=== PATIENT | female | born 1975 | race Caucasian/White ===

== ENCOUNTER 2017-03-30 13:13 | Observation (INO) | payer BC ==
[~2017-03-30] VITALS: Ht 177.8 cm; Wt 100.2 kg
[~2017-03-30 13:13] MED LIST: ADVIN25050 INH; ALBU1AER9 INH; CETIRIZINE PO; ETHINYL ESTRADIOL PO; FLNIN NAE; LEVONORGESTREL PO; OXYC-57 PO
[2017-03-30] MEDS ORDERED: ONDANSETRON INJ 2 MG/ML 2 ML VIAL IV STA (14:17)
[2017-03-30] MEDS ORDERED: SODIUM CHLORIDE 0.9% 1000ML 1,000 ML IV STA (14:17)
[2017-03-30] MEDS ORDERED: ADVIN25/60 INH (14:22)
[2017-03-30] MEDS ORDERED: ASTN (14:22)
[2017-03-30] MEDS ORDERED: CETI10TA84 PO (14:22)
[2017-03-30] MEDS ORDERED: FLUT50SP45 (14:22)
[2017-03-30] MEDS ORDERED: VNTHFA/IN INH (14:22)
[2017-03-30] MEDS ORDERED: MoRPHine SULFATE 4 MG/ML 1 ML CARP\\VIAL IV STA (14:28)
[2017-03-30 14:30] LABS: URINE APPEARANCE CLOUDY (CLEAR); URINE BILIRUBIN NEG (NEG); URINE COLOR DK YELLOW; URINE EPITHELIAL CELL AUTO >30 /lpf (0-5); URINE NITRITE NEG (NEG); URINE PH 5.5 (4.5-7.5); URINE SPECIFIC GRAVITY 1.024 (1.000-1.030); UROBILINOGEN NEG (NEG); ZZUR CULT IF INDIC CLEAN CATCH YES
[2017-03-30] MEDS ORDERED: OPTIRAY 320 IV PRN (14:30)
[2017-03-30] MEDS ORDERED: MoRPHine SULFATE 4 MG/ML 1 ML CARP\\VIAL IV PRN (14:30)
[2017-03-30 14:31] LABS: MANUAL MICROSCOPIC REQUIRED? NO; REVIEW REQ? YES
[2017-03-30 14:34] LABS: BASO % 0.2 %; BASO ABS # 0.03 K/uL (0-0.2); COMPLETE YES; EOS % 1.2 %; HEMATOCRIT 40.9 % (37-47); IG% 0.3 %; LYMPH % 17.7 %; LYMPH ABS # 2.29 K/uL (1.2-3.4); MEAN CELL VOLUME 81.6 fL (80-100); MEAN CORPUSCULAR HEMOGLOBIN 27.9 pg (25-34); MEAN CORPUSCULAR HGB CONC 34.2 g/dl (32-36); MEAN PLATELET VOLUME 10.1 fL (7.4-10.4); MONO % 11.7 %; NEUT % 68.9 %; PLATELET COUNT 307 K/uL (130-400); RED BLOOD COUNT 5.01 M/uL (4.2-5.4); WHITE BLOOD COUNT 12.94 K/uL (4.8-10.8)
[2017-03-30 14:48] LABS: URINE MUCUS PRESENT (NONE PRSENT)
[2017-03-30 14:55] LABS: ALT/SGPT 17 U/L (12-78); BLOOD UREA NITROGEN 7 mg/dl (7-18); BUN/CREATININE RATIO 7.2 (10-20); CALCIUM 9.6 mg/dl (8.5-10.1); CARBON DIOXIDE 21 mmol/L (21-32); CHLORIDE 110 mmol/L (98-107); CREATININE 0.92 mg/dl (0.60-1.20); GLUCOSE 76 mg/dl (70-99); POTASSIUM 3.5 mmol/L (3.5-5.1); SODIUM 139 mmol/L (136-145)
[2017-03-30 15:00] LABS: ALKALINE PHOSPHATASE 87 U/L (45-117); AST/SGOT 11 U/L (15-37)
--- NOTE | 2017-03-30 15:34 | DIAGNOSTIC IMAGING REPORT ---
CHEST 2 VIEWS ROUTINE HISTORY: Right lower chest pain. RUQ pain, worse with deep breathing COMPARISON: None. FINDINGS: The lungs are clear. Cardiac silhouette is normal in size. No pleural effusions. No pneumothorax. IMPRESSION: No acute process. Electronically signed by: Zion Schmid M.D. 03/30/2017 3:33 PM Dictated Date/Time: 03/30/2017 3:32 PM
--- NOTE | 2017-03-30 15:47 | DIAGNOSTIC IMAGING REPORT ---
APPENDIX ULTRASOUND HISTORY: Right lower quadrant abdominal pain. COMPARISON: None. FINDINGS: Transabdominal scanning of the right lower quadrant was performed. The appendix was not identified. There are no fluid collections or masses within the right lower quadrant. IMPRESSION: The appendix was not identified. Electronically signed by: Zion Schmid M.D. 03/30/2017 3:45 PM Dictated Date/Time: 03/30/2017 3:45 PM
--- NOTE | 2017-03-30 15:49 | DIAGNOSTIC IMAGING REPORT ---
ABDOMINAL ULTRASOUND, RIGHT UPPER QUADRANT HISTORY: RUQ/RLQ ABDOMINAL PAIN. COMPARISON: None. FINDINGS: Pancreas: The pancreatic tail is obscured by overlying bowel gas. The remaining portions of the pancreas are within normal limits. Liver: Coarse echotexture without definite mass. There is a 3.3 x 4.2 x 1.7 cm geographic hyperechoic area near the kayla hepatis which favors focal fat. Gallbladder: No gallbladder wall thickening. No gallstones. There are total of 2 small polyps with the largest measuring 3 mm. CBD: 4 mm. Right kidney: No hydronephrosis. IMPRESSION: 1. A few small gallbladder polyps. No gallstones. No gallbladder wall thickening. 2. Normal caliber common bile duct. 3. A 4.2 x 3.2 x 1.7 cm geographic hyperechoic area within the liver near the kayla hepatis. This likely represents focal fat. Electronically signed by: Zion Schmid M.D. 03/30/2017 3:48 PM Dictated Date/Time: 03/30/2017 3:45 PM
--- NOTE | 2017-03-30 17:27 | DIAGNOSTIC IMAGING REPORT ---
CT ABD/PELVIS IV AND ORAL CONT CLINICAL HISTORY: Right lower quadrant abdominal pain COMPARISON STUDY: None. TECHNIQUE: Following the IV administration of 93 mL of Optiray-320, CT scan of the abdomen and pelvis was performed from the lung bases to the proximal femurs. Images are reviewed in the axial, sagittal, and coronal planes. IV contrast was administered without complication. A dose lowering technique was utilized adhering to the principles of ALARA. CT DOSE: 768.53 mGy.cm FINDINGS: Lower chest: There are small bilateral pleural effusions. Liver: There is a small pericardial effusion. Gallbladder: Unremarkable. Spleen: The spleen is mildly enlarged measuring 12.8 cm Pancreas: Unremarkable. Adrenal glands: Unremarkable. 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 Bowel: There are no transition zone to indicate bowel obstruction. There is no evidence of acute diverticulitis. There is mild appendiceal thickening which measures up to 9 mm. There is mild infiltration of the periappendiceal fat. The findings are consistent with acute appendicitis. Peritoneum: There is no intraperitoneal free air or abdominal ascites. There is a small fat-containing umbilical hernia Vasculature: The abdominal aorta is normal in course and caliber. Adenopathy: None. Pelvic viscera: The bladder, and pelvic viscera are unremarkable. Skeletal structures: There are postsurgical changes present within the lumbar spine. IMPRESSION: 1. Mild appendiceal thickening with minimal periappendiceal inflammatory stranding. In the setting of right lower quadrant abdominal pain, the findings are suspicious for early acute appendicitis. Surgical consultation is recommended. 2. Small bilateral pleural effusions 3. Small pericardial effusion 4. 7 mm left renal angiomyolipoma 5. Mild splenomegaly Electronically signed by: Poncho Holly M.D. 03/30/2017 5:26 PM Dictated Date/Time: 03/30/2017 5:21 PM
[2017-03-30] MEDS ORDERED: ROCURONIUM BROMIDE 10 MG/ML 5 ML VIAL IV ONE (18:55)
[2017-03-30] MEDS ORDERED: PROPOFOL IV EMULSION 10 MG/ML 20 ML VIAL IV ONE (18:55)
[2017-03-30] MEDS ORDERED: LIDOCAINE HCL 2% 2 ML VIAL (20MG/ML) ONE (18:55)
[2017-03-30] MEDS ORDERED: ONDANSETRON INJ 2 MG/ML 2 ML VIAL ONE ×2 (18:55→19:31)
[2017-03-30] MEDS ORDERED: GLYCOPYRROLATE INJ 0.2 MG/ML VIAL ONE (18:55)
[2017-03-30] MEDS ORDERED: NEOSTIGMINE METHYLSULFATE 5 MG/5 ML SYR ONE (18:55)
[2017-03-30] MEDS ORDERED: CEFOXITIN 2000MG/60 ML D5W IV STA (18:56)
--- NOTE | 2017-03-30 18:56 | Surgery Consultation ---
Consultation Date of Consultation: Mar 30, 2017. Attending Physician: History of Present Illness pt is a 41 year old female who presents to ER for one day history RLQ pain, the pain is located at RLQ, pt has no PMH for abdominal pain, pt denies fever, no nausea, no vomiting, no dysuria. no diarrhea. Social History Smoking Status: Never Smoker Smokeless Tobacco Use: No Alcohol Use: occasionally Drug Use: none Marital Status: Allergies Coded Allergies: Animal Dander (Verified Allergy, Unknown, UNKNOWN, 03/30/17) Dust (Verified Allergy, Unknown, UNKNOWN, 03/30/17) Home Medications Scheduled Albuterol Hfa (Ventolin Hfa), 2-4 PUFFS INH Q6H Azelastine Hcl (Astelin Nasal Conrad), 1-2 SPRAYS NA DAILY Cetirizine (Zyrtec), 10 MG PO DAILY Fluticasone Prop/Salmeterol (Advair Diskus 250/50 60 Dose), 1 PUFF INH BID Fluticasone Propionate (Nasal) (Allergy Nasal Conrad 24 Ho), 2 SPRAYS NA DAILY Current Inpatient Medications Current Inpatient Medications Medications (Trade) Dose Ordered Sig/Isaac Route Start Time Stop Time Status Last Admin Dose Admin Ioversol (Optiray 320) 125 ml UD PRN IV 03/30/17 14:30 04/03/17 14:29 Morphine Sulfate (MoRPHine SULFATE INJ) 4 mg Q1H PRN IV 03/30/17 14:30 04/13/17 14:29 03/30/17 18:06 4 MG Review of Systems Constitutional: No fever, No chills, No sweats, No weight loss, No weakness, No fatigue, No problem reported Eyes: No worsening of vision, No eye pain, No redness, No discharge, No diplopia, No problem reported ENT: No hearing loss, No unusual epistaxis, No nasal symptoms, No sore throat, No tinnitus, No dental problems, No trouble swallowing, No problem reported Respiratory: No cough, No sputum, No wheezing, No shortness of breath, No dyspnea on exertion, No dyspnea at rest, No hemoptysis, No problem reported Cardiovascular: No chest pain, No orthopnea, No PND, No edema, No claudication , No palpitations, No problem reported Abdomen: + pain Musculoskeletal: No joint pain, No muscle pain, No swelling, No calf pain, No problem reported Genitourinary - Female: No dysuria, No urinary frequency, No urinary urgency, No urinary incontinence, No urinary retention, No hematuria, No dysmenorrhea, No menorrhagia, No metrorrhagia, No rash, No vaginal bleeding, No vaginal discharge, No vaginal itching, No vulvodynia, No , No problem reported Neurologic: No memory loss, No paralysis, No weakness, No numbness/tingling, No vertigo, No balance problems, No problem reported Psychiatric: No depression symptoms, No anhedonism, No anxiety, No insomnia, No substance abuse, No problem reported Endocrine: No fatigue, No excessive thirst, No excessive urination, No problem reported Hematologic / Lymphatic: No abnormal bleeding/bruising, No clotting problems, No swollen lymph nodes, No night sweats, No problem reported Physical Exam Date Time Temp Pulse Resp B/P (MAP) Pulse Ox O2 Delivery O2 Flow Rate FiO2 03/30/17 18:06 81 17 166/95 99 Room Air 03/30/17 17:00 76 18 140/76 99 Room Air 03/30/17 15:47 79 17 137/97 98 Room Air 03/30/17 14:41 81 20 155/73 99 Room Air 03/30/17 13:19 36.6 97 18 186/104 99 Room Air General Appearance: WD/WN, no apparent distress Head: normocephalic Eyes: normal inspection ENT: normal ENT inspection Neck: supple, no JVD Respiratory/Chest: chest non-tender, lungs clear Cardiovascular: regular rate, rhythm, no edema, no JVD, no murmur Abdomen/GI: soft, no organomegaly, no pulsatile mass, + tenderness (at RLQ, no rebound pain, ), + guarding Extremities/Musculoskelatal: normal inspection, no calf tenderness, normal capillary refill Neurologic/Psych: no motor/sensory deficits, alert, normal mood/affect Skin: normal color, warm/dry Laboratory Results Last 24 Hours Test 03/30/17 14:02 03/30/17 14:07 Urine Color DK YELLOW Urine Appearance CLOUDY Urine pH 5.5 Urine Specific [place] 1.024 Urine Protein NEG Urine Glucose (UA) NEG Urine Ketones TRACE Urine Occult Blood NEG Urine Nitrite NEG Urine Bilirubin NEG Urine Urobilinogen NEG Urine Leukocyte Esterase SMALL Urine WBC (Auto) 5-10 /hpf Urine RBC (Auto) 0-4 /hpf Urine Hyaline Casts (Auto) 1-5 /lpf Urine Epithelial Cells (Auto) >30 /lpf Urine Bacteria (Auto) 1+ Urine Pathogenic Casts /lpf Urine Mucus PRESENT Urine Test NEG White Blood Count 12.94 K/uL Red Blood Count 5.01 M/uL Hemoglobin 14.0 g/dL Hematocrit 40.9 % Mean Corpuscular Volume 81.6 fL Mean Corpuscular Hemoglobin 27.9 pg Mean Corpuscular Hemoglobin Concent 34.2 g/dl Platelet Count 307 K/uL Mean Platelet Volume 10.1 fL Neutrophils (%) (Auto) 68.9 % Lymphocytes (%) (Auto) 17.7 % Monocytes (%) (Auto) 11.7 % Eosinophils (%) (Auto) 1.2 % Basophils (%) (Auto) 0.2 % Neutrophils # (Auto) 8.91 K/uL Lymphocytes # (Auto) 2.29 K/uL Monocytes # (Auto) 1.51 K/uL Eosinophils # (Auto) 0.16 K/uL Basophils # (Auto) 0.03 K/uL RDW Standard Deviation 44.5 fL RDW Coefficient of Variation 15.0 % Immature Granulocyte % (Auto) 0.3 % Immature Granulocyte # (Auto) 0.04 K/uL Sodium Level 139 mmol/L Potassium Level 3.5 mmol/L Chloride Level 110 mmol/L Carbon Dioxide Level 21 mmol/L Anion Gap 8.0 mmol/L Blood Urea Nitrogen 7 mg/dl Creatinine 0.92 mg/dl Est Creatinine Clear Calc Drug Dose 103.1 ml/min Estimated GFR () 89.6 Estimated GFR (Non- 77.3 BUN/Creatinine Ratio 7.2 Random Glucose 76 mg/dl Calcium Level 9.6 mg/dl Total Bilirubin 0.5 mg/dl Direct Bilirubin 0.1 mg/dl Aspartate Amino Transf (AST/SGOT) 11 U/L Alanine Aminotransferase (ALT/SGPT) 17 U/L Alkaline Phosphatase 87 U/L Troponin I < 0.015 ng/ml Total Protein 7.9 gm/dl Albumin 3.7 gm/dl Lipase 186 U/L Assessment & Plan CT scan-IMPRESSION: 1. Mild appendiceal thickening with minimal periappendiceal inflammatory stranding. In the setting of right lower quadrant abdominal pain, the findings are suspicious for early acute appendicitis. Surgical consultation is recommended. 2. Small bilateral pleural effusions 3. Small pericardial effusion 4. 7 mm left renal angiomyolipoma 5. Mild splenomegaly U/S-IMPRESSION: 1. A few small gallbladder polyps. No gallstones. No gallbladder wall thickening. 2. Normal caliber common bile duct. 3. A 4.2 x 3.2 x 1.7 cm geographic hyperechoic area within the liver near the kayla hepatis. This likely represents focal fat. Assement: pt is a 41 year old female who presents to ER for one day history abdominal pain, pt had CT scan- Dx acute appendicitis, IMP: acute appendicitis Plan, I recommend to do laparoscopic appendectomy, possible open , D/W benefits, risks and alternatives of the procedure, otñito risks- infection, bleeding, abscess, injury bowel, pt and her understood, sthey agree with the plan, pt signed consent, I answered all questions, I reviewed all albs ,
[2017-03-30] MEDS ORDERED: LIDOCAINE HCL 1% 20 ML VIAL ONE (19:05)
[2017-03-30] MEDS ORDERED: BACITRACIN OINT 15 GM TUBE ONE (19:05)
[2017-03-30] MEDS ORDERED: BUPIVACAINE 0.5 % 5 MG/1 ML MPF 30ML VIAL ONE (19:05)
[2017-03-30] MEDS ORDERED: CEFOXITIN IV 2,000 MG in DEXTROSE 5% 50ML 50 ML IV SCH (19:15)
[2017-03-30] MEDS ORDERED: ATROPINE SULFATE 0.1 MG/ML 5ML SYR IV PRN (19:30)
[2017-03-30] MEDS ORDERED: NALOXONE HCL 0.4 MG/1 ML VIAL/CARP IV PRN (19:30)
[2017-03-30] MEDS ORDERED: FLUMAZENIL 0.1 MG/1 ML 10 ML VIAL IV PRN (19:30)
[2017-03-30] MEDS ORDERED: ONDANSETRON INJ 2 MG/ML 2 ML VIAL IV PRN ×2 (19:30→21:00)
[2017-03-30] MEDS ORDERED: PHENYLEPHRINE 100MCG/ML 5ML SYR IV PRN (19:30)
[2017-03-30] MEDS ORDERED: HYDROmorphone INJ 2 MG/ML SYR/VIAL IV PRN (19:30)
[2017-03-30] MEDS ORDERED: LABETALOL HCL IV 5 MG/ML 20ML IV PRN (19:30)
[2017-03-30] MEDS ORDERED: MEPERIDINE HCL 25 MG/ML CARP IV PRN (19:30)
[2017-03-30] MEDS ORDERED: EpHEDrine SULFATE INJ 50 MG/ML AMP IV PRN (19:30)
[2017-03-30] MEDS ORDERED: FENTANYL CITRATE INJ 50 MCG/1 ML 2 ML VIAL IV PRN (19:30)
[2017-03-30] MEDS ORDERED: DEXAMETHASONE SOD INJ 4 MG/ML VIAL ONE (19:31)
[2017-03-30] MEDS ORDERED: MIDAZOLAM HCL 1 MG/ML 2ML VIAL ONE (19:32)
[2017-03-30] MEDS ORDERED: SUCCINYLCHOLINE CHLORIDE 20 MG/ML 10 ML VIAL IV ONE (19:32)
[2017-03-30] MEDS ORDERED: FENTANYL CITRATE INJ 50 MCG/1 ML 2 ML VIAL ONE ×3 (19:33→21:05)
--- NOTE | 2017-03-30 19:44 | History & Physical Bridge Note ---
H&P Re-Evaluation Bridge Note: I have examined the patient, reviewed the History & Physical and in the interval since the performance of the History & Physical I have noted the following changes of clinical significance: No changes noted
[2017-03-30] MEDS ORDERED: ESMOLOL HCL 10 MG/ML 10 ML VIAL ONE (20:22)
--- NOTE | 2017-03-30 20:52 | [facility] Post Operative Brief Note ---
Immediate Operative Summary Operative Date Mar 30, 2017. Pre-Operative Diagnosis Acute appendicitis Post-Operative Diagnosis Acute appendicitis Procedure(s) Performed Laparoscopic Appendectomy Surgeon Dr. Kebede Passenger Vessel Chef Surgeon(s) surgical training specialist Estimated Blood Loss 10 ml Findings acute appendicitis Fluids (cc crystalloids) 800ml Specimens Permanent specimen A. Appendix Drains none Anesthesia general Complication(s) None Disposition Recovery Room / PACU
[2017-03-30] MEDS ORDERED: ACETAMINOPHEN 325 MG TAB PO PRN (21:00)
[2017-03-30] MEDS ORDERED: HYDROmorphone INJ 1 MG/ML SYR IV PRN (21:00)
--- NOTE | 2017-03-30 21:28 | Anesthesiology Progress Note ---
Anesthesia Post Op Note Date & Time Mar 30, 2017 at 21:28 Vital Signs Pain Intensity: 2 Vital Signs Past 12 Hours Date Time Temp Pulse Resp B/P (MAP) Pulse Ox O2 Delivery O2 Flow Rate FiO2 03/30/17 21:20 69 15 146/85 100 Oxymask 10 03/30/17 21:10 68 15 163/94 100 Oxymask 10 03/30/17 21:01 36.6 79 16 164/87 98 Oxymask 10 03/30/17 19:14 87 18 154/104 95 03/30/17 19:02 87 18 154/104 95 Room Air 03/30/17 18:06 81 17 166/95 99 Room Air 03/30/17 17:00 76 18 140/76 99 Room Air 03/30/17 15:47 79 17 137/97 98 Room Air 03/30/17 14:41 81 20 155/73 99 Room Air 03/30/17 13:19 36.6 97 18 186/104 99 Room Air Notes Mental Status: alert / awake / arousable, participated in evaluation Pt Amnestic to Procedure: Yes Nausea / Vomiting: adequately controlled Pain: adequately controlled Airway Patency, RR, SpO2: stable & adequate BP & HR: stable & adequate Hydration State: stable & adequate Anesthetic Complications: no major complications apparent
[2017-03-30 22:00] VITALS: BP 149/91; PULSE 77; TEMP 36.5; O2SAT 95
[2017-03-30 22:19] VITALS: BP 156/95; PULSE 75; TEMP 36.2; Ht 177.8 cm; Wt 100.2 kg
[2017-03-30 22:20] VITALS: O2SAT 95
[2017-03-30 22:30] VITALS: BP 153/90; PULSE 78; TEMP 36.3; O2SAT 95
--- NOTE | 2017-03-30 22:57 | EMERGENCY ROOM VISIT NOTE ---
History First contact with patient: 14:01 Chief Complaint: ABDOMINAL PAIN Stated Complaint: GALLBLADDER/ABD. PAIN-SENT BY DR. ARCHANA Shaikh/[facility] [place] Nursing Triage Summary: triage note; pt reports right abd pain sinct last night. History of Present Illness The patient is a 41 year old female who presents to the Emergency Room with complaints of abrupt onset of generalized abdominal pain that is now concentrated in the right upper quadrant. She reports that it radiates around the flank into the back. She denies any pain extending into the chest, shoulder or neck. The patient reports that she did have some increased urinary frequency 1 week ago, but denies any dysuria or hematuria. The patient suspects a history of IBS, but has never been diagnosed with it. She did notice some heartburn heartburn last week after drinking coffee that quickly resolved. She describes that as a burning sensation from the epigastrium to the center of the chest. Her abdominal pain is worsened with deep breathing. She denies any shortness of breath, fevers or chills. The patient has a history of delivery. She denies history of kidney stones. She does have a strong family history of gallbladder disease and kidney stones. The patient reports that the pain is constant with occasional sharp jabs. She reports nausea without vomiting. Review of Systems HEENT: Denies dizziness, visual problems, hearing loss, tinnitus. Denies difficulty swallowing or oral lesions. PULMONARY: Denies cough, shortness of breath, sputum production or hemoptysis. CARDIOVASCULAR: Denies current chest pain, palpitations, dyspnea on exertion, orthopnea or peripheral edema. GASTROINTESTINAL: Denies diarrhea, constipation, nausea or vomiting. Otherwise see history of present illness. GENITOURINARY: Recent increased urinary frequency, but denies hematuria, dysuria , urgency or nocturia. NEUROLOGIC: Denies history of epilepsy, CVA, TIA or chronic headaches. MUSCULOSKELETAL: Denies history of joint tenderness/swelling. SKIN: Denies rashes or lesions. PSYCHIATRIC: Denies history of depression or mental illness. ENDOCRINE: Denies history of diabetes or thyroid disorders. Past Medical/Surgical History Medical Problems: (1) Acute appendicitis (2) Asthma, Unspecified (3) Harris's Palsy (4) Lumbar Disc Displacement (5) Subserous Leiomyoma Surgical Problems: (1) History of section (2) Status post lumbar spine surgery for decompression of spinal cord Family History Unremarkable Social History Smoking Status: Never Smoker Alcohol Use: occasionally Marital Status: Housing Status: lives with family Occupation Status: employed Current/Historical Medications Scheduled Albuterol Hfa (Ventolin Hfa), 2-4 PUFFS INH Q6H Azelastine Hcl (Astelin Nasal [place]), 1-2 SPRAYS NA DAILY Cetirizine (Zyrtec), 10 MG PO DAILY Fluticasone Prop/Salmeterol (Advair Diskus 250/50 60 Dose), 1 PUFF INH BID Fluticasone Propionate (Nasal) (Allergy Nasal [place] 24 Ho), 2 SPRAYS NA DAILY Allergies Coded Allergies: Animal Dander (Verified Allergy, Unknown, UNKNOWN, 03/30/17) Dust (Verified Allergy, Unknown, UNKNOWN, 03/30/17) Physical Exam Vital Signs Date Time Temp Pulse Resp B/P (MAP) Pulse Ox O2 Delivery O2 Flow Rate FiO2 03/30/17 19:14 87 18 154/104 95 03/30/17 19:02 87 18 154/104 95 Room Air 03/30/17 18:06 81 17 166/95 99 Room Air 03/30/17 17:00 76 18 140/76 99 Room Air 03/30/17 15:47 79 17 137/97 98 Room Air 03/30/17 14:41 81 20 155/73 99 Room Air 03/30/17 13:19 36.6 97 18 186/104 99 Room Air Physical Exam CONSTITUTIONAL: Healthy and well nourished. Alert and oriented X 3 with positive affect. Patient appears in mild to moderate discomfort. She does not appear acutely ill or toxic. HEENT: Normocephalic, atraumatic. Pupils equal, round and reactive. Ears and nares are clear. No scleral icterus or conjunctival injection. NECK: Full active range of motion without discomfort. No JVD or carotid bruits. RESPIRATORY: Clear to auscultation bilaterally with no wheezing, crackles, rhonchi or stridor. CARDIOVASCULAR: Regular rate and rhythm with no murmurs, rubs or gallops. GASTROINTESTINAL: Bowel sounds present in all quadrants. Patient has notable right upper and right lower quadrant tenderness to palpation. Negative CVA tenderness. Mildly positive McBurney's point tenderness. Negative Rovsing sign. Negative psoas/obturator sign. Negative heel tap. No abdominal rigidity , guarding or rebound. No obvious hepatosplenomegaly. MUSCULOSKELETAL: Full range of motion of all joints without discomfort. No worsening pain with logroll of the right hip. Negative straight leg raise. INTEGUMENTARY: No rash or other significant dermatologic conditions noted. NEUROLOGIC: No focal neurologic deficits noted. Medical Decision & Procedures ER Provider Diagnostic Interpretation: My interpretation of an ECG shows a normal sinus rhythm of 83 beats per min without ST elevation or other conduction abnormalities. My interpretation of the two-view chest x-ray does not show any consolidations, pneumothorax or cardiac prominence. Radiologist report was also reviewed. Appendix ultrasound was unable to visualize the appendix. Radiologist report was reviewed. Limited abdominal ultrasound does not show any evidence for gallstones or cholecystitis. A few polyps are noted. Common bile duct is normal. Radiologist report is as follows: ABDOMINAL ULTRASOUND, RIGHT UPPER QUADRANT HISTORY: RUQ/RLQ ABDOMINAL PAIN. COMPARISON: None. FINDINGS: Pancreas: The pancreatic tail is obscured by overlying bowel gas. The remaining portions of the pancreas are within normal limits. Liver: Coarse echotexture without definite mass. There is a 3.3 x 4.2 x 1.7 cm geographic hyperechoic area near the kayla hepatis which favors focal fat. Gallbladder: No gallbladder wall thickening. No gallstones. There are total of 2 small polyps with the largest measuring 3 mm. CBD: 4 mm. Right kidney: No hydronephrosis. IMPRESSION: 1. A few small gallbladder polyps. No gallstones. No gallbladder wall thickening. 2. Normal caliber common bile duct. 3. A 4.2 x 3.2 x 1.7 cm geographic hyperechoic area within the liver near the kayla hepatis. This likely represents focal fat. Enhanced CT of the abdomen and pelvis is concerning for an early appendicitis. Small bilateral basilar pleural effusions and pericardial effusion are also noted. Radiologist report is as follows: CT ABD/PELVIS IV AND ORAL CONT CLINICAL HISTORY: Right lower quadrant abdominal pain COMPARISON STUDY: None. TECHNIQUE: Following the IV administration of 93 mL of Optiray-320, CT scan of the abdomen and pelvis was performed from the lung bases to the proximal femurs. Images are reviewed in the axial, sagittal, and coronal planes. IV contrast was administered without complication. A dose lowering technique was utilized adhering to the principles of ALARA. CT DOSE: 768.53 mGy.cm FINDINGS: Lower chest: There are small bilateral pleural effusions. Liver: There is a small pericardial effusion. Gallbladder: Unremarkable. Spleen: The spleen is mildly enlarged measuring 12.8 cm Pancreas: Unremarkable. Adrenal glands: Unremarkable. 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 Bowel: There are no transition zone to indicate bowel obstruction. There is no evidence of acute diverticulitis. There is mild appendiceal thickening which measures up to 9 mm. There is mild infiltration of the periappendiceal fat. The findings are consistent with acute appendicitis. Peritoneum: There is no intraperitoneal free air or abdominal ascites. There is a small fat-containing umbilical hernia Vasculature: The abdominal aorta is normal in course and caliber. Adenopathy: None. Pelvic viscera: The bladder, and pelvic viscera are unremarkable. Skeletal structures: There are postsurgical changes present within the lumbar spine. IMPRESSION: 1. Mild appendiceal thickening with minimal periappendiceal inflammatory stranding. In the setting of right lower quadrant abdominal pain, the findings are suspicious for early acute appendicitis. Surgical consultation is recommended. 2. Small bilateral pleural effusions 3. Small pericardial effusion 4. 7 mm left renal angiomyolipoma 5. Mild splenomegaly Laboratory Results 03/30/17 14:07 Red Blood Count 5.01, Mean Corpuscular Volume 81.6, Mean Corpuscular Hemoglobin 27.9, Mean Corpuscular Hemoglobin Concent 34.2, Mean Platelet Volume 10.1, Neutrophils (%) (Auto) 68.9, Lymphocytes (%) (Auto) 17.7, Monocytes (%) (Auto) 11.7, Eosinophils (%) (Auto) 1.2, Basophils (%) (Auto) 0.2, Neutrophils # (Auto ) 8.91, Lymphocytes # (Auto) 2.29, Monocytes # (Auto) 1.51, Eosinophils # (Auto ) 0.16, Basophils # (Auto) 0.03 03/30/17 14:07 Test 03/30/17 14:02 03/30/17 14:07 Urine Color DK YELLOW Urine Appearance CLOUDY (CLEAR) Urine pH 5.5 (4.5-7.5) Urine Specific [place] 1.024 (1.000-1.030) Urine Protein NEG (NEG) Urine Glucose (UA) NEG (NEG) Urine Ketones TRACE (NEG) Urine Occult Blood NEG (NEG) Urine Nitrite NEG (NEG) Urine Bilirubin NEG (NEG) Urine Urobilinogen NEG (NEG) Urine Leukocyte Esterase SMALL (NEG) Urine WBC (Auto) 5-10 /hpf (0-5) Urine RBC (Auto) 0-4 /hpf (0-4) Urine Hyaline Casts (Auto) 1-5 /lpf (0-5) Urine Epithelial Cells (Auto) >30 /lpf (0-5) Urine Bacteria (Auto) 1+ (NEG) Urine Pathogenic Casts /lpf (0) Urine Mucus PRESENT (NONE PRSENT) Urine Test NEG (NEG) White Blood Count 12.94 K/uL (4.8-10.8) Red Blood Count 5.01 M/uL (4.2-5.4) Hemoglobin 14.0 g/dL (12.0-16.0) Hematocrit 40.9 % (37-47) Mean Corpuscular Volume 81.6 fL (80-100) Mean Corpuscular Hemoglobin 27.9 pg (25-34) Mean Corpuscular Hemoglobin Concent 34.2 g/dl (32-36) Platelet Count 307 K/uL (130-400) Mean Platelet Volume 10.1 fL (7.4-10.4) Neutrophils (%) (Auto) 68.9 % Lymphocytes (%) (Auto) 17.7 % Monocytes (%) (Auto) 11.7 % Eosinophils (%) (Auto) 1.2 % Basophils (%) (Auto) 0.2 % Neutrophils # (Auto) 8.91 K/uL (1.4-6.5) Lymphocytes # (Auto) 2.29 K/uL (1.2-3.4) Monocytes # (Auto) 1.51 K/uL (0.11-0.59) Eosinophils # (Auto) 0.16 K/uL (0-0.5) Basophils # (Auto) 0.03 K/uL (0-0.2) RDW Standard Deviation 44.5 fL (36.4-46.3) RDW Coefficient of Variation 15.0 % (11.5-14.5) Immature Granulocyte % (Auto) 0.3 % Immature Granulocyte # (Auto) 0.04 K/uL (0.00-0.02) Anion Gap 8.0 mmol/L (3-11) Est Creatinine Clear Calc Drug Dose 103.1 ml/min Estimated GFR () 89.6 Estimated GFR (Non- 77.3 BUN/Creatinine Ratio 7.2 (10-20) Calcium Level 9.6 mg/dl (8.5-10.1) Total Bilirubin 0.5 mg/dl (0.2-1) Direct Bilirubin 0.1 mg/dl (0-0.2) Aspartate Amino Transf (AST/SGOT) 11 U/L (15-37) Alanine Aminotransferase (ALT/SGPT) 17 U/L (12-78) Alkaline Phosphatase 87 U/L (45-117) Troponin I < 0.015 ng/ml (0-0.045) Total Protein 7.9 gm/dl (6.4-8.2) Albumin 3.7 gm/dl (3.4-5.0) Lipase 186 U/L (73-393) Urine was negative. Urine dip shows hematuria and leukocytes. Urinalysis shows a contaminated sample. Cultures were ordered. Review of remaining labs shows a mild leukocytosis. Otherwise electrolytes, LFTs and lipase are normal. Troponin is also normal. Medications Administered Medications (Trade) Dose Ordered Sig/Isaac Route Start Time Stop Time Status Last Admin Dose Admin Sodium Chloride 1,000 ml @ 999 mls/hr Q1H1M STAT IV 03/30/17 14:17 03/30/17 15:17 DC 03/30/17 14:47 999 MLS/HR Ondansetron HCl (Zofran Inj) 4 mg NOW STAT IV 03/30/17 14:17 03/30/17 14:21 DC 03/30/17 14:47 4 MG Morphine Sulfate (MoRPHine SULFATE INJ) 4 mg NOW STAT IV 03/30/17 14:28 03/30/17 14:29 DC 03/30/17 14:47 4 MG Morphine Sulfate (MoRPHine SULFATE INJ) 4 mg Q1H PRN IV 03/30/17 14:30 03/30/17 21:17 DC 03/30/17 18:06 4 MG Lidocaine HCl (Xylocaine 1% Inj (Local)) 20 ml STK-MED ONCE .ROUTE 03/30/17 19:05 03/30/17 19:06 DC 03/30/17 19:05 20 ML Bacitracin (Bacitracin Oint) 45 appln STK-MED ONCE .ROUTE 03/30/17 19:05 03/30/17 19:06 DC 03/30/17 20:56 45 APPLN Bupivacaine HCl (Marcaine 0.5% MPF Inj) 30 ml STK-MED ONCE .ROUTE 03/30/17 19:05 03/30/17 19:06 DC 03/30/17 19:05 20 ML Cefoxitin Sodium 2000 mg/Dextrose 60 ml @ 120 mls/hr PREOP IV 03/30/17 19:15 03/30/17 22:00 DC 03/30/17 19:49 120 MLS/HR Procedure 1. IV hydration: The patient was hydrated with a liter of normal saline 2. IV medications: Morphine 4 mg and Zofran 4 mg IVP ED Course Patient history and physical exam were performed. Nurse's notes were reviewed. Vital signs were reviewed, showing a blood pressure of 186/104. The patient is afebrile and not tachycardic. The patient appears in moderate discomfort from pain. She has right-sided abdominal tenderness to palpation, therefore several imaging studies were suggested. IV access was established, and labs were drawn. The patient was hydrated with normal saline, and received IV analgesics and antiemetics as discussed in the previous Procedure section. Review of labs shows a mild leukocytosis, otherwise remaining labs are normal. Urinalysis was contaminated, and urine cultures are pending. Urine was negative. A two-view chest x-ray was normal. Right upper quadrant ultrasound showed only a few gallbladder polyps, otherwise no evidence for only cystitis or other acute findings. Ultrasound was unable to visualize the appendix. Enhanced CT of the abdomen and pelvis shows evidence for an early acute appendicitis. The case was further discussed with Dr. Moreland, ED attending physician, who agrees with surgery consultation. The case was discussed with Dr. Kebede who came to the emergency department for further surgical intervention. Please see his dictation for further treatment and final disposition. Medical Decision Patient presents to the emergency department with complaint of right upper and right lower quadrant abdominal pain. Her CT scan today shows an early acute appendicitis. Remaining labs and right upper quadrant ultrasound studies are not suggestive of acute cholecystitis, hepatitis, pancreatitis, UTI or other acute intra-abdominal findings. The patient's medication list was personally reviewed by me. The patient was not hypotensive in the emergency department, therefore will not need further PCP follow-up. Impression Primary Impression: Acute appendicitis Departure Information Referrals Tayo Ricks M.D. (PCP) Patient Instructions My [facility] Problem Qualifiers Primary Impression: Acute appendicitis Acute appendicitis type: unspecified acute appendicitis type Qualified Codes : K35.80 - Unspecified acute appendicitis
[2017-03-30 23:00] VITALS: BP 148/84; PULSE 84; TEMP 36.3; O2SAT 96
--- NOTE | 2017-03-30 23:44 | OPERATIVE REPORT ---
DATE OF OPERATION: 03/30/2017 PREOPERATIVE DIAGNOSIS: Acute appendicitis. POSTOPERATIVE DIAGNOSIS: Same. OPERATION: Laparoscopic appendectomy. SURGEON: Dr. Tanvir Kebede. ANESTHESIA: General. ESTIMATED BLOOD LOSS: About 10 mL IV FLUIDS: 800 mL FINDINGS: Acute appendicitis. COMPLICATION: None. INDICATIONS FOR THE PROCEDURE: This is a 41-year-old female who presented to the ED with 1 day history of right-sided abdominal pain. The patient had CT scan diagnosis of acute appendicitis. The patient will be required to do laparoscopic appendectomy, possible open. I did talk to the patient about the benefit and risk, alternate procedure. I indicated the risks may include but not limited such as bleeding, infection, abscess, injury to bowel, incisional hernia. The patient understands. She signed informed consent and I answered all questions. The patient agreed to proceed with the procedure. DETAILS OF PROCEDURE: We brought the patient to the OR, put the patient in supine position. The patient received SCD in bilateral legs to prevent DVT. Also, the patient received 2 gram cefoxitin IV for prophylactic antibiotic. The patient received general anesthesia without difficulty. The abdomen was prepped and draped in routine sterile fashion. After timeout, I made a small incision just below the umbilical, opened fascia and opened peritoneum under direct vision. I put a Evette trocar in, connected to CO2 to create pneumoperitoneum. Flow rate 6 liter per minute, pressure not more than 14 mmHg. Once we got a nice pneumoperitoneum, we put a 10 mm camera in to look around the abdomen, showed normal finding of the stomach, small-bowel, large bowel. No free fluid in the abdomen. Normal looking liver and gallbladder, however. Then, we put two 5 mm trocar on the left side lower quadrant area and we put grasper in and mobilized the cecum area, found the patient has acute appendicitis. Appendix is red and is swollen. Then, I used Harmonic to take down the appendicocele. Then, I used Endo-ARIEL stapler, transected the base of the appendix, rechecked, no active bleeding, no leak. Then, we pulled out the appendix through the catch bag and then we reinserted Evette trocar to create pneumoperitoneum again, looked around the abdomen, no active bleeding, no leak from the appendix site. Then, we removed all trocars under direct vision. No active bleeding from trocar sites. Pneumoperitoneum was released. Closed the umbilical incision fascial layer by using #1 Vicryl [id number] x2, closed subcutaneous layer by using 2-0 Vicryl, closed skin by using 4-0 Vicryl. The two 5 mm trocar site closed skin only by using 4-0 Vicryl. We put the dressing on. Also before the procedure, the patient received Hickey catheter. After the procedure, we removed the patient's Hickey catheter. The patient tolerated the procedure well. All instrument, needle and sponge count correct x2 at the end of the case. After procedure, I did talk to the patient's family member about the OR finding and they understand the procedure we did. I attest to the content of the Intraoperative Record and any orders documented therein. Any exceptions are noted below. DWIGHTD
[2017-03-30] MEDS: D5W AND 1/2NSS + 20MEQ KCL 1,000 ML IV SCH (23:57)
[2017-03-31] VITALS: BP 150/88; PULSE 84; TEMP 36.5; O2SAT 97
[2017-03-31 01:00] VITALS: BP 135/82; PULSE 86; TEMP 36.7; O2SAT 96
[2017-03-31] MEDS ORDERED: IV FLUIDS COMPLETED PRN (02:30)
[2017-03-31 03:42] VITALS: BP 132/77; PULSE 78; TEMP 36.7; O2SAT 96
[2017-03-31 06:52] VITALS: BP 136/84; PULSE 83; TEMP 36.9; O2SAT 95
[2017-03-31] MEDS ORDERED: CEFTRIAXONE SOD INJ 1 GM in DEXTROSE 5% ADD-VANTAGE 50ML 50 ML IV SCH (08:00)
[2017-03-31 08:23] LABS: BASO % 0.1 %; BASO ABS # 0.01 K/uL (0-0.2); COMPLETE YES; HEMATOCRIT 38.8 % (37-47); IG% 0.2 %; LYMPH % 7.5 %; LYMPH ABS # 0.92 K/uL (1.2-3.4); MEAN CELL VOLUME 82.6 fL (80-100); MEAN CORPUSCULAR HGB CONC 32.7 g/dl (32-36); MONO % 4.7 %; NEUT % 87.5 %; PLATELET COUNT 257 K/uL (130-400); WHITE BLOOD COUNT 12.26 K/uL (4.8-10.8)
[2017-03-31] MEDS ORDERED: OXYC-57 PO (08:33)
--- NOTE | 2017-03-31 08:39 | Discharge Instructions ---
Discharge Instructions Date of Service Mar 31, 2017. Admission Reason for Admission: Acute Appendicitis Discharge Discharge Diagnosis / Problem: same Discharge Goals Goal(s): Decrease discomfort, Improve function Activity Recommendations Activity Limitations: as noted below No heavy lifting over 10 pounds for 2-3 weeks No strenuous activity until cleared by surgeon No submerging incisions underwater for 2 weeks or until healed (no bathing, swimming, or hot tubs) No driving while taking narcotic pain medication or until you are pain free . Instructions / Follow-Up Instructions / Follow-Up You may shower in 3 days, sponge bath and wash hair in meantime. You may let water hit your back but keep the dressings dry. After 3 days you may remove the dressings. Leave steri strips on incisions for 7 days and then remove. If they fall off on their own that is okay. Walking and light activity is encouraged to prevent blood clots forming No restrictions in your diet You may take extra strength Tylenol or Ibuprofen based products as needed for pain however do not take Tylenol while you are taking Percocet (Narcotic pain medication) as it has Tylenol in it. If you need to alternate pain reliever with the narcotic alternate with Ibuprofen/Motrin based products Follow-up with Dr. Kebede/Lucía Stanley PA-C in 1 week, please call office at to make an appointment Current Hospital Diet Patient's current hospital diet: Regular Diet Discharge Diet Recommended Diet: Regular Diet Procedures Procedures Performed: Laparoscopic Appendectomy Pending Studies Studies pending at discharge: yes List of pending studies: Appendix pathology- will be reviewed at follow up visit Medical Emergencies . Who to Call and When: Medical Emergencies: If at any time you feel your situation is an emergency, please call 911 immediately. . Non-Emergent Contact Non-Emergency issues call your: Primary Care Provider, Surgeon Call Non-Emergent contact if: you have a fever, temperature is above 101.5, your pain is not controlled, your pain is worsening, your pain is unusual for you, wound has increased drainage, wound has increased redness, wound has increased pain . "Provider Documentation" section prepared by Lucía Stanley. . VTE Core Measure Inpt VTE Proph given/why not?: SCD's [place] Drug Monitoring Program Search Results: patient reviewed within database, no issues identified
[2017-03-31] MEDS: OXYCODONE/ACETAMINOPHEN 5-325 TAB PO PRN ×2 (09:10→13:47)
[2017-03-31] MEDS: D5W AND 1/2NSS + 20MEQ KCL 1,000 ML IV SCH (09:10)
[2017-03-31 11:53] VITALS: BP 139/75; PULSE 77; TEMP 37.5; O2SAT 98
[2017-03-31 12:04] VITALS: BP 139/75; PULSE 77; TEMP 37.5; O2SAT 98
--- NOTE | 2017-03-31 18:35 | Surgery Progress Note ---
Surgery Progress Note Date of Service Mar 31, 2017. Subjective Post OP Day: POD # s/p lap appendectomy + feeling well, + pain controlled, + nausea, + vomiting, No complaints, No bowel movement, No flatus LATE ENTRY FOR 03/31/2017 AT 7:30 AM Objective Vital Signs: Date Time Temp Pulse Resp B/P (MAP) Pulse Ox O2 Delivery O2 Flow Rate FiO2 03/31/17 12:04 37.5 77 19 98 Room Air 03/31/17 11:53 37.5 77 19 139/75 (96) 98 Room Air 03/31/17 07:25 Room Air 03/31/17 06:52 36.9 83 20 136/84 (101) 95 Room Air 03/31/17 03:42 36.7 78 16 132/77 (95) 96 Room Air 03/31/17 01:00 36.7 86 16 135/82 (99) 96 Room Air 03/31/17 00:00 36.5 84 18 150/88 (108) 97 Room Air 03/30/17 23:50 Room Air 03/30/17 23:00 36.3 84 16 148/84 (105) 96 Nasal Cannula 2.0 03/30/17 22:30 36.3 78 16 153/90 (111) 95 Nasal Cannula 2.0 03/30/17 22:20 95 Nasal Cannula 2.0 03/30/17 22:19 36.2 75 16 156/95 Nasal Cannula 2.0 03/30/17 22:00 36.5 77 16 149/91 (110) 95 Nasal Cannula 2.0 03/30/17 21:49 75 16 156/95 100 Nasal Cannula 2 03/30/17 21:40 36.2 74 17 157/88 100 Nasal Cannula 2 03/30/17 21:30 73 16 148/87 100 Nasal Cannula 2 03/30/17 21:20 69 15 146/85 100 Oxymask 10 03/30/17 21:10 68 15 163/94 100 Oxymask 10 03/30/17 21:01 36.6 79 16 164/87 98 Oxymask 10 03/30/17 19:14 87 18 154/104 95 03/30/17 19:02 87 18 154/104 95 Room Air General Appearance: WD/WN, no apparent distress Head: normocephalic, atraumatic Neck: trachea midline Respiratory/Chest: no respiratory distress, no accessory muscle use Abdomen: non distended, soft, + tenderness (appropriate post op) Incision(s): clean, dry (dressing clean and dry) Laboratory Results: Results Past 24 Hours Test 03/31/17 07:51 Range/Units White Blood Count 12.26 4.8-10.8 K/uL Red Blood Count 4.70 4.2-5.4 M/uL Hemoglobin 12.7 12.0-16.0 g/dL Hematocrit 38.8 37-47 % Mean Corpuscular Volume 82.6 80-100 fL Mean Corpuscular Hemoglobin 27.0 25-34 pg Mean Corpuscular Hemoglobin Concent 32.7 32-36 g/dl Platelet Count 257 130-400 K/uL Neutrophils (%) (Auto) 87.5 % Lymphocytes (%) (Auto) 7.5 % Monocytes (%) (Auto) 4.7 % Eosinophils (%) (Auto) 0.0 % Basophils (%) (Auto) 0.1 % Neutrophils # (Auto) 10.72 1.4-6.5 K/uL Lymphocytes # (Auto) 0.92 1.2-3.4 K/uL Monocytes # (Auto) 0.58 0.11-0.59 K/uL Eosinophils # (Auto) 0.00 0-0.5 K/uL Basophils # (Auto) 0.01 0-0.2 K/uL Immature Granulocyte % (Auto) 0.2 % Immature Granulocyte # (Auto) 0.03 0.00-0.02 K/uL Assessment & Plan POD # 0 s/p laparoscopic appendectomy -vitals stable - pain controlled - tolerated regular diet this am for breakfast, no nausea or vomiting Plan: Plan to discharge home later today discharge instructions given rx for percocet as needed follow-up [address] Kebede has seen and examined patient, agrees with above
--- NOTE | 2017-04-02 12:17 | Discharge Summary ---
Discharge Summary Dates Admission Date / Time: Mar 30, 2017 at 20:57 Discharge Date: Mar 31, 2017 Dispostion / Condition Discharge Disposition: Home Condition at Discharge: Good Principal Diagnosis (1) Acute appendicitis Problem List (1) Status post lumbar spine surgery for decompression of spinal cord (2) History of section Consultations / Procedures Consultations: None Procedures: Laparoscopic Appendectomy Medication Reconciliation New Medications: Oxycodone/Acetaminophen 5MG/325MG (Percocet 5MG/325MG) Tab 1 TABLET PO Q4H PRN for Pain, #18 TAB PAIN Continued Medications: Albuterol Hfa (Ventolin Hfa) 200 Puffs/33876 Mcg Aers 2-4 PUFFS INH Q6H, #1 INHALER Azelastine Hcl (Astelin Nasal [place]) 200 Sprays/30 Ml [place] 1-2 SPRAYS NA DAILY, BTL Cetirizine (Zyrtec) 10 Mg Tab 10 MG PO DAILY, TAB Fluticasone Prop/Salmeterol (Advair Diskus 250/50 60 Dose) 1 Ea Aerp 1 PUFF INH BID, INHALER Fluticasone Propionate (Nasal) (Allergy Nasal [place] 24 Ho) 50 Mcg/Act Spr 2 SPRAYS NA DAILY Admission HPI Per the Admitting provider: pt is a 41 year old female who presents to ER for one day history RLQ pain, the pain is located at RLQ, pt has no PMH for abdominal pain, pt denies fever, no nausea, no vomiting, no dysuria. no diarrhea. Hospital Course (1) Acute appendicitis Patient was taken to operating room for laparoscopic appendectomy possible open by Dr. Kebede. Patient was found to have early appendicitis and tolerated procedure well without difficulty. She was taken to recovery room and then medical/surgical floor in stable condition. Postoperatively she was started on IV fluids, IV Zofran, PO Percocet and breakthrough dilaudid, NPO except chips, and activity as tolerated. Morning of POD # 0 she was doing well, pain controlled, no nausea or vomiting. slightly hungry. Diet was advanced to regular diet and she was re-evaluated later in the morning. She tolerated regular breakfast, pain controlled, ambulated, and urinated without difficulty. She was discharged home in the afternoon on POD # 0 in stable condition. Discharge Instructions as given to patient Copies To Primary Care Provider: Tayo Ricks M.D.. Problem Qualifiers (1) Acute appendicitis: Acute appendicitis type: unspecified acute appendicitis type Qualified Codes: K35.80 - Unspecified acute appendicitis
== END 2017-03-31 14:10 | disposition home or self-care (01) ==
LOC: C.EDB 13:15 → C.MSN 20:57 → ENRESERV 21:21
PROVIDERS: ADMIT Surgery; ATTEND Surgery
DX: K35.80 Unspecified acute appendicitis (principal); J45.909 Unspecified asthma, uncomplicated